=== PATIENT | female | born 1945 | race Caucasian/White ===

== ENCOUNTER → 2016-10-13 | Outpatient (CLI) | payer MEDICARE, OTHER ==
[2016-10-13 13:45] LABS: HEMOGLOBIN 11.2 gm/dl (12.3-15.3); RED BLOOD COUNT 3.88 M/UL (4.00-5.10); WHITE BLOOD COUNT 6.4 K/UL (4.5-11.0)
[2016-10-13 14:07] LABS: BUN/CREATININE RATIO 13 (0-10)
== END ==
LOC: LAB 13:01
PROVIDERS: Nurse Practitioner Acute Care
DX: B19.20 Unspecified viral hepatitis C without hepatic coma (principal)
CPT/HCPCS: 36415; 80053; 85027

== ENCOUNTER → 2016-11-16 | Outpatient (CLI) | payer MEDICARE, OTHER | LOC: LAB 14:50 | DX: Z00.00 Encounter for general adult medical examination without abnormal findings (principal); B19.20 Unspecified viral hepatitis C without hepatic coma; R79.89 Other specified abnormal findings of blood chemistry; E66.9 Obesity, unspecified; K76.0 Fatty (change of) liver, not elsewhere classified | CPT/HCPCS: 36415 ==

== ENCOUNTER → 2016-11-25 | Outpatient (CLI) | payer MEDICARE, OTHER ==
[2016-11-25 13:18] LABS: HEMOGLOBIN 10.9 gm/dl (12.3-15.3); RED BLOOD COUNT 3.77 M/UL (4.00-5.10); WHITE BLOOD COUNT 6.8 K/UL (4.5-11.0)
[2016-11-25 13:48] LABS: BUN/CREATININE RATIO 15 (0-10)
== END ==
LOC: LAB 12:54
PROVIDERS: Nurse Practitioner Acute Care
DX: B19.20 Unspecified viral hepatitis C without hepatic coma (principal)
CPT/HCPCS: 36415; 80053; 85027

== ENCOUNTER → 2017-01-19 | Outpatient (CLI) | payer MEDICARE, OTHER ==
[2017-01-19 17:06] LABS: HEMOGLOBIN 11.3 gm/dl (12.3-15.3); RED BLOOD COUNT 3.92 M/UL (4.00-5.10); WHITE BLOOD COUNT 8.3 K/UL (4.5-11.0)
[2017-01-19 17:26] LABS: BUN/CREATININE RATIO 14 (0-10)
== END ==
LOC: LAB 16:38
PROVIDERS: Nurse Practitioner Acute Care
DX: R79.89 Other specified abnormal findings of blood chemistry (principal); K76.0 Fatty (change of) liver, not elsewhere classified; B19.20 Unspecified viral hepatitis C without hepatic coma
CPT/HCPCS: 36415; 80053; 85027

== ENCOUNTER 2021-07-04 17:57 | Inpatient (IN) | payer MEDICARE, OTHER ==
[~2021-07-04] VITALS: Ht 167.6 cm; Wt 77.1 kg
[2021-07-04 18:56] LABS: HEMOGLOBIN 16.4 gm/dl (12.3-15.3); RED BLOOD COUNT 5.26 M/UL (4.00-5.10); WHITE BLOOD COUNT 12.4 K/UL (4.5-11.0)
[2021-07-04 19:17] LABS: BUN/CREATININE RATIO 17 (0-10)
[2021-07-05] MEDS ORDERED: CLOPIDOGREL75 MG PO (00:55)
[2021-07-05] MEDS ORDERED: AMLODIPINE BESY10 MG PO (00:55)
[2021-07-05] MEDS ORDERED: EVISTA 60 MG TA60 MG PO (00:56)
[2021-07-05] MEDS ORDERED: TRENTAL 400 MG400 MG PO (00:56)
[2021-07-05] MEDS ORDERED: LEVOTHYROXINE75 MC1 PO (00:57)
[2021-07-05] MEDS ORDERED: RANOLAZINE ER500 MG PO (00:57)
[2021-07-05] MEDS ORDERED: ISORDIL TAB 3030 MG PO (00:58)
[2021-07-05] MEDS ORDERED: CRESTOR20 MG PO (00:58)
[2021-07-05] MEDS ORDERED: PROTONIX 40 MG40 M1 PO (00:59)
[2021-07-05] MEDS ORDERED: ASPIRIN EC81 MG PO (01:00)
[2021-07-05] MEDS ORDERED: TRICOR 145 MG145 MG PO (01:01)
[2021-07-05] MEDS ORDERED: ONDANSETRON ODT8 MG PO (01:01)
[2021-07-05] MEDS ORDERED: CALCIUM 600 +1 EA10 PO (01:02)
[2021-07-05] MEDS ORDERED: COQ1050 MG PO (01:02)
[2021-07-05] MEDS ORDERED: OXYCODONE HCL10 MG PO (01:03)
[2021-07-05 06:36] LABS: HEMOGLOBIN 13.1 gm/dl (12.3-15.3); RED BLOOD COUNT 4.36 M/UL (4.00-5.10); WHITE BLOOD COUNT 6.1 K/UL (4.5-11.0)
[2021-07-05 07:10] LABS: BUN/CREATININE RATIO 23 (0-10)
[2021-07-06 06:37] LABS: HEMOGLOBIN 11.3 gm/dl (12.3-15.3)
[2021-07-06 06:38] LABS: RED BLOOD COUNT 3.72 M/UL (4.00-5.10)
[2021-07-06 06:51] LABS: BUN/CREATININE RATIO 17 (0-10)
[2021-07-07] MEDS ORDERED: CEFUROXIME500 MG PO (08:59)
== END 2021-07-07 15:14 | disposition home or self-care (01) | DRG 388 ==
LOC: ER1 17:57 → MED SURG 4 21:57 → CDU 21:57 → MED SURG 4 22:15
PROVIDERS: Internal Medicine; ADMIT Internal Medicine
DX: K56.609 Unspecified intestinal obstruction, unspecified as to partial versus complete obstruction (principal); I81 Portal vein thrombosis; C25.9 Malignant neoplasm of pancreas, unspecified; C78.7 Secondary malignant neoplasm of liver and intrahepatic bile duct; N39.0 Urinary tract infection, site not specified; I82.890 Acute embolism and thrombosis of other specified veins; Z20.822 Contact with and (suspected) exposure to COVID-19; Z66 Do not resuscitate; F41.9 Anxiety disorder, unspecified; F32.A Depression, unspecified; F17.210 Nicotine dependence, cigarettes, uncomplicated; I25.10 Atherosclerotic heart disease of native coronary artery without angina pectoris; I10 Essential (primary) hypertension; E03.9 Hypothyroidism, unspecified; Z79.01 Long term (current) use of anticoagulants; Z79.82 Long term (current) use of aspirin; Z95.5 Presence of coronary angioplasty implant and graft; Z90.710 Acquired absence of both cervix and uterus; Z98.891 History of uterine scar from previous surgery; Z85.9 Personal history of malignant neoplasm, unspecified
CPT/HCPCS: 36415; 80048; 80053; 81001; 83690; 85025; 85652; 86140; 87086; 96374; 96375; 99285; C9113; J0696; J1170; J1650; J2212; J2405; Q9967; U0002

== ENCOUNTER 2021-11-25 11:05 | Inpatient (IN) | payer MEDICARE, OTHER ==
[~2021-11-25] VITALS: Ht 167.6 cm; Wt 63.5 kg
[~2021-11-25 11:05] MED LIST: AMLODIPINE BESY10 MG PO; ASPIRIN EC81 MG PO; CALCIUM 600 +1 EA10 PO; CEFUROXIME500 MG PO; CLOPIDOGREL75 MG PO; COQ1050 MG PO; CRESTOR20 MG PO; EVISTA 60 MG TA60 MG PO; ISORDIL TAB 3030 MG PO; LEVOTHYROXINE75 MC1 PO; ONDANSETRON ODT8 MG PO; OXYCODONE HCL10 MG PO; PROTONIX 40 MG40 M1 PO; RANOLAZINE ER500 MG PO; TRENTAL 400 MG400 MG PO; TRICOR 145 MG145 MG PO
[2021-11-25 12:31] LABS: HEMOGLOBIN 15.3 gm/dl (12.3-15.3); RED BLOOD COUNT 4.86 M/UL (4.00-5.10); WHITE BLOOD COUNT 13.7 K/UL (4.5-11.0)
[2021-11-25] MEDS ORDERED: 24 HOUR ALLERG9.9 ML (16:38)
[2021-11-25] MEDS ORDERED: LACTULOSE10 GM/15 M PO (16:40)
[2021-11-25] MEDS ORDERED: RELISTOR12 MG/0.1 SQ (16:42)
[2021-11-25] MEDS ORDERED: OXYCODONE HCL10 MG PO (16:43)
[2021-12-04] MEDS ORDERED: ATIVAN0.5 MG PO (11:13)
[2021-12-04] MEDS ORDERED: ROXANOL SO10 MG/5 ML PO (11:13)
[2021-12-04] MEDS ORDERED: ARTIFICIAL TEAR15 M6 OP (11:13)
[2021-12-04] MEDS ORDERED: BISACODYL10 MG PR (11:13)
== END 2021-12-04 14:20 | DRG 436 ==
LOC: ER1 11:05 → MED SURG 4 15:40 → CDU 15:40 → MED SURG 4 19:14
PROVIDERS: Emergency Medicine; ADMIT Internal Medicine
DX: C25.9 Malignant neoplasm of pancreas, unspecified (principal); C22.8 Malignant neoplasm of liver, primary, unspecified as to type; Z51.5 Encounter for palliative care; Z66 Do not resuscitate; Z20.822 Contact with and (suspected) exposure to COVID-19; E86.0 Dehydration; E03.9 Hypothyroidism, unspecified; I25.10 Atherosclerotic heart disease of native coronary artery without angina pectoris; I10 Essential (primary) hypertension; E05.90 Thyrotoxicosis, unspecified without thyrotoxic crisis or storm; Z90.710 Acquired absence of both cervix and uterus; Z98.891 History of uterine scar from previous surgery; Z80.9 Family history of malignant neoplasm, unspecified; Z95.1 Presence of aortocoronary bypass graft
CPT/HCPCS: 80053; 83690; 85025; 94760; 96374; 96375; 96376; 99285; J1200; J2060; J2270; J2405; J2550; J7030; U0002